=== PATIENT | female | born 1975 | race Caucasian/White ===

== ENCOUNTER 2017-09-09 19:27 | Emergency (ER) | payer OTHER ==
[~2017-09-09] VITALS: Ht 157.5 cm; Wt 72.6 kg
[2017-09-09] MEDS ORDERED: ACYCLOVIR 400400 MG PO ×2 (19:43→19:54)
[2017-09-09] MEDS ORDERED: AMLODIPINE BESY10 MG PO (19:43)
[2017-09-09] MEDS ORDERED: WELLBUTRIN XL150 MG PO (19:43)
[2017-09-09] MEDS ORDERED: AMITRIPTYLINE H10 M3 PO (19:44)
[2017-09-09] MEDS ORDERED: TOPAMAX50 MG PO (19:44)
[2017-09-09] MEDS ORDERED: VALACYCLOVIR1000 MG PO (19:44)
[2017-09-09] MEDS ORDERED: PROZAC20 MG PO (19:45)
[2017-09-09] MEDS ORDERED: TRAZODONE 150150 M1 PO (19:45)
[2017-09-09] MEDS ORDERED: HYDROCODON-ACE1 EA12 PO (19:46)
[2017-09-09] MEDS ORDERED: LIDOCARE1 EACH TOP (19:47)
[2017-09-09] MEDS ORDERED: NEURONTIN 300300 M1 PO (19:47)
[2017-09-09] MEDS ORDERED: ATIVAN0.5 MG (19:48)
[2017-09-09] MEDS ORDERED: BUSPIRONE HCL10 MG PO (19:48)
[2017-09-09] MEDS ORDERED: ZANTAC 150MG T150 MG PO (19:49)
[2017-09-09] MEDS ORDERED: ALIVE WOMEN'S1 EAC1 PO (19:50)
[2017-09-09] MEDS ORDERED: FOLIC ACID 1 MG1 MG PO (19:50)
[2017-09-09] MEDS ORDERED: PROBIOTIC1 EAC1 PO (19:50)
[2017-09-09] MEDS ORDERED: [UNRECOGNIZED DRUG - OTHER] PO (19:51)
[2017-09-09] MEDS ORDERED: VITAMINC500 (19:51)
[2017-09-09] MEDS ORDERED: VITAMIN B122500 MCG PO (19:52)
[2017-09-09] MEDS ORDERED: VITAMIN D3400 UNI2 PO (19:52)
[2017-09-09] MEDS ORDERED: CLEOCIN HCL150 MG PO (19:54)
[2017-09-09] MEDS ORDERED: MAGIC MOUTHWASH SWISH&SPIT (19:57)
== END 2017-09-09 20:04 | disposition home or self-care (01) ==
LOC: ER 19:27
DX: K12.1 Other forms of stomatitis (principal); K06.8 Other specified disorders of gingiva and edentulous alveolar ridge; F17.200 Nicotine dependence, unspecified, uncomplicated

== ENCOUNTER 2017-12-09 21:44 | Emergency (ER) | payer OTHER ==
[~2017-12-09] VITALS: Ht 154.9 cm; Wt 72.6 kg
--- NOTE | ~2017-12-09 | EKG ---
[address] [place] [employer] [place] [address] ELECTROCARDIOGRAM REPORT Name: FABY STEPHENS Room #: DEP CHARLENE Souza#: [id number] Admission: 12/09/17 Attend Phys: Discharge: 12/10/17 Date of : 73 Report #: [id number] THIS REPORT FOR: //name// [facility] ED Test Date: 2017-12-09 Test Time: 21:49:34 Pat Name: FABY STEPHENS Department: Room: Gender: F Route Delivery Driver: SUNIL : 1975 Requested By: [place] Order Number: [id number] MD: Reggie Morales Measurements Intervals [place] Rate: 73 P: 53 MT: 149 QRS: 20 QRSD: 103 T: 28 QT: 406 QTc: 448 Interpretive Statements Sinus rhythm Normal tracing No previous ECG available for comparison Electronically Signed On 12-10-2017 8:51:35 CDT by Reggie Morales [email or web address] <ELECTRONICALLY SIGNED> By: Reggie Morales MD, [facility] 12/10/17 0851 [id number] 2149 Reggie Morales MD, FACC /EPI
[~2017-12-09 21:44] MED LIST: ACYCLOVIR 400400 MG PO; ALIVE WOMEN'S1 EAC1 PO; AMITRIPTYLINE H10 M3 PO; AMLODIPINE BESY10 MG PO; ATIVAN0.5 MG; BUSPIRONE HCL10 MG PO; CLEOCIN HCL150 MG PO; FOLIC ACID 1 MG1 MG PO; HYDROCODON-ACE1 EA12 PO; LIDOCARE1 EACH TOP; MAGIC MOUTHWASH SWISH&SPIT; NEURONTIN 300300 M1 PO; PROBIOTIC1 EAC1 PO; PROZAC20 MG PO; TOPAMAX50 MG PO; TRAZODONE 150150 M1 PO; VALACYCLOVIR1000 MG PO; VITAMIN B122500 MCG PO; VITAMIN D3400 UNI2 PO; VITAMINC500; WELLBUTRIN XL150 MG PO; ZANTAC 150MG T150 MG PO; [UNRECOGNIZED DRUG - OTHER] PO
[2017-12-09 22:22] LABS: EOSINOPHILS 4.7 % (0.0-3.0); HEMATOCRIT 36.8 % (37.0-47.0); HEMOGLOBIN 12.5 gm/dL (12.0-15.0); LYMPHOCYTES 37.2 % (24.0-44.0); MCH 32.2 pg (26.0-34.0); MCHC 34.1 g/dL (28.0-37.0); MCV 94.5 fL (80.0-100.0); MONOCYTES 9.9 % (1.0-8.0); PLATELET COUNT 367 thou/uL (150-400); POLYS 47.2 % (36.0-66.0); RBC 3.89 mil/uL (4.20-5.00); RDW 12.7 % (10.5-14.5); WBC 8.5 thou/uL (4.0-11.0)
[2017-12-09 22:30] LABS: ANION GAP 7 mmol/L (7-16); BUN 12 mg/dL (7-18); CALCIUM 9.6 mg/dL (8.5-10.1); CHLORIDE 103 mmol/L (98-107); CO2 27 mmol/L (21-32); GLUCOSE 80 mg/dL (74-106); POTASSIUM 3.2 mmol/L (3.5-5.1); SODIUM 137 mmol/L (136-145)
[2017-12-09 22:39] LABS: TROPONIN-I < 0.04 ng/mL (<0.06)
[2017-12-09 23:22] LABS: URINE BILIRUBIN NEGATIVE (Negative); URINE BLOOD NEGATIVE (Negative); URINE CLARITY CLEAR; URINE COLOR YELLOW; URINE GLUCOSE-RANDOM* NEGATIVE (Negative); URINE KETONES NEGATIVE (Negative); URINE LEUKOCYTES NEGATIVE (Negative); URINE NITRITE NEGATIVE (Negative); URINE PROTEIN (DIPSTICK) NEGATIVE (Negative); URINE SPECIFIC GRAVITY 1.025 (1.005-1.035); URINE UROBILINOGEN 0.2 E.U./dl (0.2-1.0)
[2017-12-09] MEDS ORDERED: ANTIVERT25 MG PO (23:57)
[2017-12-10 01:11] VITALS: BP 123/81
== END 2017-12-10 01:15 | disposition home or self-care (01) ==
LOC: ER 21:44
PROVIDERS: Emergency Medicine; Nurse Practitioner
DX: R55 Syncope and collapse (principal); R30.0 Dysuria; E87.6 Hypokalemia; F17.210 Nicotine dependence, cigarettes, uncomplicated

== ENCOUNTER → 2017-12-28 | Outpatient (CLI) | payer OTHER ==
[~2017-12-28] MED LIST changes: +ANTIVERT25 MG PO
== END ==
LOC: RAD 14:45
DX: M54.5 Low back pain (principal)

== ENCOUNTER → 2019-01-11 | Outpatient (CLI) | payer OTHER | LOC: RAD 09:09 | DX: M47.812 Spondylosis without myelopathy or radiculopathy, cervical region (principal); M50.80 Other cervical disc disorders, unspecified cervical region; N20.1 Calculus of ureter ==

== ENCOUNTER → 2019-08-25 | Outpatient (CLI) | payer OTHER | LOC: BC 09:21 → ULTRA 20:42 → BC 20:51 | DX: R22.32 Localized swelling, mass and lump, left upper limb (principal); N63.21 Unspecified lump in the left breast, upper outer quadrant; K21.9 Gastro-esophageal reflux disease without esophagitis; F17.200 Nicotine dependence, unspecified, uncomplicated; F41.9 Anxiety disorder, unspecified; Z87.442 Personal history of urinary calculi; Z90.711 Acquired absence of uterus with remaining cervical stump ==